=== PATIENT | female | born 1935 | race Caucasian/White ===

== ENCOUNTER 2022-01-26 12:57 | Outpatient (CLI) | payer OTHER, MEDICARE ==
[~2022-01-26 12:57] MED LIST: CARV3.1246 PO; DEXL60CA6 PO; DULO60CA65 PO; EZET10TA30 PO; FENOFIBRATE PO; GABA-331 PO; METF-380 PO; OXYSR10 PO; SPIR25TA PO
== END 2022-01-26 21:06 | disposition home or self-care (01) ==
LOC: SUS 12:57
PROVIDERS: ATTEND Specialist
DX: N90.89 Other specified noninflammatory disorders of vulva and perineum (principal); N32.89 Other specified disorders of bladder
CPT/HCPCS: 76856-TC

== ENCOUNTER 2022-02-13 22:11 | Inpatient (IN) | payer OTHER, MEDICARE ==
[~2022-02-13] VITALS: Ht 157.5 cm; Wt 98.1 kg
[2022-02-13 22:21] VITALS: BP_SYST 137
--- NOTE | 2022-02-13 22:25 | NUR ---
PATIENT PLACED IN BED 2. SATTING 91% ON RA. STATES FOR ONE HOUR, PATIENT HAS HAD CHEST PAIN THAT RADIATES DOWN LEFT ARM. PATIENT SOB WITH NO EXERTION. KIDNEY HISTORY.
--- NOTE | 2022-02-13 22:55 | NUR ---
MD at bedside with patient.
[2022-02-13] MEDS ORDERED: IPRATROPIUM/ALBUTEROL SULFATE 3 ML AMPUL.NEB (DUONEB) INH ONE (23:45)
--- NOTE | 2022-02-13 23:55 | NUR ---
RT AT BEDSIDE WITH PATIENT FOR BREATHING TX.
[2022-02-14 00:08] LABS: BASOPHILS # (AUTO) 0.1 K/uL (0.0-0.2); BASOPHILS % (AUTO) 0.9 % (0.0-2.0); EOSINOPHILS # (AUTO) 0.3 K/uL (0.0-0.4); EOSINOPHILS % (AUTO) 4.5 % (0.0-4.0); HEMATOCRIT 25.4 % (36-48); HEMOGLOBIN 8.3 g/dL (12.0-16.0); LYMPHOCYTES % (AUTO) 17.3 % (20.5-51.5); MEAN CORPUSCULAR HEMOGLOBIN 28 pg (27-31); MEAN CORPUSCULAR HGB CONC 33 % (32-36); MEAN CORPUSCULAR VOLUME 85 fL (79.0-98.0); MONOCYTES # (AUTO) 0.3 K/uL (0.0-1.0); MONOCYTES % (AUTO) 5.6 % (1.7-9.3); NEUTROPHILS # (AUTO) 4.2 K/uL (1.8-7.7); NEUTROPHILS % (AUTO) 71.7 % (40.0-70.0); PLATELET COUNT (AUTO) 169 K/uL (130-430); RED BLOOD CELL COUNT(AUTO) 2.98 MIL/uL (4.2-6.2); RED CELL DISTRIBUTION WIDTH 15.3 % (9.0-15.0); WHITE BLOOD COUNT (AUTO) 5.8 K/uL (4.8-10.8)
[2022-02-14 00:16] LABS: ANION GAP 7 (5-15); CALCIUM 8.3 mg/dL (8.4-11.0); CHLORIDE 103 mmol/L (98-107); CREATININE 3.46 mg/dL (0.55-1.30); GLUCOSE 135 mg/dL (70-99); POTASSIUM 4.5 mmol/L (3.5-5.1); SODIUM SERUM 137 mmol/L (136-145); UREA NITROGEN, BLOOD 48 mg/dL (8-21)
[2022-02-14 00:34] LABS: ALANINE AMINOTRANSFERASE 13 U/L (12-78); ALBUMIN 3.1 g/dL (3.4-4.8); ASPARTATE AMINOTRANSFERASE 12 U/L (10-37); TOTAL BILIRUBIN 0.4 mg/dL (0.0-1.0)
--- NOTE | 2022-02-14 00:53 | NUR ---
X-ray being done at bedside. Pt moved from wheelchair to bed with ease.
--- NOTE | 2022-02-14 01:25 | NUR ---
Pt sitting up in bed with eyes closed. VSS. Pt O2 sat at 95% on NC 3L. Safety precautions in place and pt connected to ekg monitor.
[2022-02-14] MEDS ORDERED: FUROSEMIDE 20 MG/2 ML VIAL IVP ONE ×2 (01:30→09:00)
--- NOTE | 2022-02-14 01:33 | NUR ---
Patient and unable to provide home medications.
--- NOTE | 2022-02-14 01:55 | NUR ---
COVID SWAB DONE AT BEDSIDE AND SENT TO LAB
--- NOTE | 2022-02-14 03:36 | NUR ---
Pt sitting in bed upright with eyes closed. VSS. O2 at 96% on NC 3L. Safety precautions in place and connected to monitor.
--- NOTE | 2022-02-14 04:03 | NUR ---
Admit bed requested Patient will be admitted to care of Dr. Vargas. Admitted to TELE unit. Diagnosis CHF EXACERBATION Inpatient (Yes or No) YES Observation (Yes or No) YES Orientation concerns or request close to nursing station (Yes or No) NO Covid Status PENDING On vent or bipap NO Isolation requirements NO Needs a sitter NO From Home (Yes or if No enter name of facility) YES Requires Dialysis (Yes or No) NO Med Rec Completed (Yes of No) UNABLE TO OBTAIN
[2022-02-14 05:30] VITALS: BP_SYST 138
--- NOTE | 2022-02-14 05:30 | NUR ---
Patient will be admitted to care of Dr. Vargas. Admitted to telemetry unit. Will go to room 103B. Belongings list completed. Complete and up to date summary report printed. SBAR report given to Alta RN at bedside with opportunity for questions.
--- NOTE | 2022-02-14 05:30 | NUR ---
ADMISSION: The patient, SILVER BE, 86 y/o, F admitted by JOEY ANDREWS MD, was given written information regarding hospital policies, unit procedures and contact persons. Valuables were checked and DOCUMENTED.
--- NOTE | 2022-02-14 05:35 | NUR ---
INITIAL NOTE AT INITIAL ASSESSMENT, PATIENT IS RESTING IN BED, STABLE, NO SIGNS OF RESPIRATORY DISTRESS. IS IS WEAK AND LETHARGIC. PATIENT VERBALIZES NO PAIN. PLAN OF CARE FOR THE EVENING IS COMMUNICATED WITH THE PATIENT. BED IS LOCKED, ALARMED, AND AT THE LOWEST LEVEL. FALL, SAFETY, AND RESPIRATORY PRECAUTIONS WILL BE IN PLACE THROUGHOUT THE SHIFT.
--- NOTE | 2022-02-14 05:45 | NUR ---
HYGIENE CARE PATIENT CHANGED INTO HOSPITAL GOWN. HYGIENE CARE PROVIDED. PATIENT REPOSITIONED FOR COMFORT. CALL LIGHT PLACED WITHIN REACH. BED IS LOCKED, ALARMED, AND AT THE LOWEST LEVEL.
--- NOTE | 2022-02-14 05:51 | NUR ---
CONSULTATION CALLED FOR DR. AQUINO FOR CONSULT OF CHF EXACERBATION ORDER BY DR. SÁNCHEZIUM SPOKE WITH SINA
--- NOTE | 2022-02-14 06:56 | NUR ---
CLOSING NOTE PATIENT REMAINED LETHARGIC BUT AROUSABLE THROUGHOUT THE SHIFT. SHE VERBALIZES NO MORE CHEST PAIN OR DISCOMFORT. AT THIS TIME, PATIENT IS SLEEPING, STABLE, NO SIGNS OF RESPIRATORY DISTRESS. BED IS LOCKED, ALARMED, AND AT THE LOWEST LEVEL. FALL, SAFETY, AND RESPIRATORY PRECAUTIONS HAVE BEEN TAKEN THROUGHOUT THE SHIFT. WILL CONTINUE TO MONITOR UNTIL SHIFT REPORT IS GIVEN AT BEDSIDE TO AM NURSE.
[2022-02-14 08:15] VITALS: BP_SYST 143; BP_SYST 150
[2022-02-14] MEDS ORDERED: GABAPENTIN 300 MG CAPSULE PO ONE (10:45)
[2022-02-14] MEDS ORDERED: BUDESONIDE 0.5 MG/2 ML AMPUL.NEB INH ONE (10:45)
[2022-02-14] MEDS ORDERED: CARVEDILOL 3.125 MG TABLET (COREG) PO ONE (10:45)
[2022-02-14] MEDS ORDERED: PANTOPRAZOLE SODIUM 40 MG TAB PO ONE (10:45)
[2022-02-14] MEDS ORDERED: DULoxetine HCL 30 MG CAPSULE.DR (CYMBALTA) PO ONE (10:45)
[2022-02-14] MEDS ORDERED: TAMSULOSIN HCL 0.4 MG CAP PO ONE (10:45)
[2022-02-14 10:50] LABS: ANION GAP 10 (5-15); CALCIUM 8.6 mg/dL (8.4-11.0); CHLORIDE 104 mmol/L (98-107); CREATININE 3.55 mg/dL (0.55-1.30); GLUCOSE 143 mg/dL (70-99); POTASSIUM 4.7 mmol/L (3.5-5.1); SODIUM SERUM 139 mmol/L (136-145); UREA NITROGEN, BLOOD 50 mg/dL (8-21)
[2022-02-14] MEDS ORDERED: ASPIRIN 81 MG TAB.CHEW PO ONE (11:00)
[2022-02-14] MEDS ORDERED: ENOXAPARIN SODIUM 30 MG/0.3 ML SYRINGE SUBCUT ONE (11:00)
[2022-02-14 11:04] LABS: ALANINE AMINOTRANSFERASE 18 U/L (12-78); ALBUMIN 3.3 g/dL (3.4-4.8); ASPARTATE AMINOTRANSFERASE 17 U/L (10-37); THYROID STIMULATING HORMONE 4.25 uIu/mL (0.36-3.74); TOTAL BILIRUBIN 0.5 mg/dL (0.0-1.0)
[2022-02-14 11:12] LABS: BASOPHILS % (AUTO) 0.5 % (0.0-2.0); EOSINOPHILS # (AUTO) 0.3 K/uL (0.0-0.4); EOSINOPHILS % (AUTO) 3.7 % (0.0-4.0); HEMATOCRIT 29.6 % (36-48); HEMOGLOBIN 9.6 g/dL (12.0-16.0); LYMPHOCYTES # (AUTO) 1.3 K/uL (1.0-5.5); LYMPHOCYTES % (AUTO) 16.9 % (20.5-51.5); MEAN CORPUSCULAR HEMOGLOBIN 28 pg (27-31); MEAN CORPUSCULAR HGB CONC 32 % (32-36); MEAN CORPUSCULAR VOLUME 86 fL (79.0-98.0); MONOCYTES # (AUTO) 0.5 K/uL (0.0-1.0); MONOCYTES % (AUTO) 6.7 % (1.7-9.3); NEUTROPHILS # (AUTO) 5.6 K/uL (1.8-7.7); NEUTROPHILS % (AUTO) 72.2 % (40.0-70.0); RED BLOOD CELL COUNT(AUTO) 3.43 MIL/uL (4.2-6.2); RED CELL DISTRIBUTION WIDTH 15.6 % (9.0-15.0)
[2022-02-14 11:14] LABS: WHITE BLOOD COUNT (AUTO) 7.7 K/uL (4.8-10.8)
[2022-02-14 12:15] VITALS: BP_SYST 126
[2022-02-14] MEDS: ALBUTEROL SULFATE 0.083% 2.5 MG/3 ML VIAL.NEB INH SCH ×2 (13:00→19:00)
[2022-02-14 13:03] LABS: PLATELET COUNT (AUTO) 152 K/uL (130-430)
[2022-02-14 16:15] VITALS: BP_SYST 121
--- NOTE | 2022-02-14 16:33 | NUR ---
CONSULTATION: REASON FOR CONSULT: RENAL FAILURE CONSULTING PHYSICIAN: JULIA ORDERED BY: DARRYL SPOKE WITH RIK FROM [employer] AND DR CHANDLER IS COVERING [phone]
[2022-02-14] MEDS: BUDESONIDE 0.5 MG/2 ML AMPUL.NEB INH SCH (19:00)
[2022-02-14 20:00] VITALS: BP_SYST 136
--- NOTE | 2022-02-14 20:00 | NUR ---
RECEIVED PT FROM DAY SHIFT, PT AOX1-2,NO ACUTE DISTRESS OR DISCOMFORT NOTED, BREATHING EVEN AND UNLABORED, IV SITE IS INTACT AND PATENT SALINE LOCK, BIPAP RR 10, 10/5, 30%, FALL AND SAFETY PRECAUTIONS IN PLACE WITH BED IN LOWEST POSITION, BED ALARM ON, AND CALL LIGHT WITHIN REACH, WILL CONTINUE TO MONITOR.
[2022-02-14] MEDS ORDERED: BUDESONIDE/FORMOTEROL 160-4.5 mCg, 6 GM INHALER INH SCH (21:00)
[2022-02-14] MEDS: FUROSEMIDE 20 MG/2 ML VIAL IVP SCH (21:14)
[2022-02-14] MEDS: GABAPENTIN 300 MG CAPSULE PO SCH (21:16)
[2022-02-14] MEDS: CARVEDILOL 3.125 MG TABLET (COREG) PO SCH (21:16)
[2022-02-15] VITALS: BP_SYST 127
--- NOTE | 2022-02-15 | NUR ---
N O CHANGES NOTED FROM PREVIOUS ASSESSMENT, WILL CONTINUE TO MONITOR.
[2022-02-15] MEDS: ALBUTEROL SULFATE 0.083% 2.5 MG/3 ML VIAL.NEB INH SCH ×3 (03:55→13:47)
--- NOTE | 2022-02-15 06:12 | NUR ---
PT RESTING COMFORTABLY IN BED, NO S/S OF DISTRESS OR DISCOMFORT NOTED, BREATHING EVEN AND UNLABORED, ALL FALL PROTOCOLS IN PLACE, WILL CONTINUE TO MONITOR AND ENDORSED TO INCOMING AM NURSE.
--- NOTE | 2022-02-15 07:17 | NUR ---
REPORT GIVEN TO VINAYAK JOSE FOR CONTINUITY OF CARE ALL QUESTIONS WERE ANSWERED AND RN VERBALIZED UNDERSTANDING.
[2022-02-15 07:26] LABS: ALANINE AMINOTRANSFERASE 13 U/L (12-78); ALBUMIN 2.9 g/dL (3.4-4.8); ANION GAP 9 (5-15); ASPARTATE AMINOTRANSFERASE 10 U/L (10-37); CALCIUM 8.7 mg/dL (8.4-11.0); CHLORIDE 104 mmol/L (98-107); CREATININE 3.72 mg/dL (0.55-1.30); GLUCOSE 89 mg/dL (70-99); POTASSIUM 4.1 mmol/L (3.5-5.1); SODIUM SERUM 140 mmol/L (136-145); TOTAL BILIRUBIN 0.4 mg/dL (0.0-1.0); UREA NITROGEN, BLOOD 48 mg/dL (8-21)
[2022-02-15 07:32] LABS: BASOPHILS % (AUTO) 0.7 % (0.0-2.0); EOSINOPHILS # (AUTO) 0.2 K/uL (0.0-0.4); EOSINOPHILS % (AUTO) 4.8 % (0.0-4.0); HEMOGLOBIN 7.8 g/dL (12.0-16.0); LYMPHOCYTES # (AUTO) 1.4 K/uL (1.0-5.5); LYMPHOCYTES % (AUTO) 27.6 % (20.5-51.5); MEAN CORPUSCULAR HEMOGLOBIN 28 pg (27-31); MEAN CORPUSCULAR HGB CONC 32 % (32-36); MEAN CORPUSCULAR VOLUME 86 fL (79.0-98.0); MONOCYTES # (AUTO) 0.5 K/uL (0.0-1.0); MONOCYTES % (AUTO) 9.7 % (1.7-9.3); NEUTROPHILS # (AUTO) 2.8 K/uL (1.8-7.7); NEUTROPHILS % (AUTO) 57.2 % (40.0-70.0); PLATELET COUNT (AUTO) 142 K/uL (130-430); RED BLOOD CELL COUNT(AUTO) 2.79 MIL/uL (4.2-6.2); RED CELL DISTRIBUTION WIDTH 15.6 % (9.0-15.0); WHITE BLOOD COUNT (AUTO) 4.9 K/uL (4.8-10.8)
[2022-02-15] MEDS: BUDESONIDE 0.5 MG/2 ML AMPUL.NEB INH SCH (07:32)
[2022-02-15 08:00] VITALS: BP_SYST 130
[2022-02-15 09:12] LABS: TOTAL IRON BIND. CAPACITY 357 ug/dL (250-450)
--- NOTE | 2022-02-15 10:00 | NUR ---
SCHEDULED MEDS GIVEN AND TOLERATED WELL. PT SITTING UP SPEAKING WITH FAMILY. DENIES PAIN. NO S/S OF RESP DISTRESS NOTED. CALL LIGHT WITHIN REACH.
[2022-02-15] MEDS: TAMSULOSIN HCL 0.4 MG CAP PO SCH (10:25)
[2022-02-15] MEDS: GABAPENTIN 300 MG CAPSULE PO SCH ×2 (10:26→21:28)
[2022-02-15] MEDS: ASPIRIN 81 MG TAB.CHEW PO SCH (10:26)
[2022-02-15] MEDS: PANTOPRAZOLE SODIUM 40 MG TAB PO SCH (10:26)
[2022-02-15] MEDS: FUROSEMIDE 20 MG/2 ML VIAL IVP SCH ×2 (10:27→21:31)
[2022-02-15] MEDS: CARVEDILOL 3.125 MG TABLET (COREG) PO SCH ×2 (10:27→21:31)
[2022-02-15] MEDS: DULoxetine HCL 30 MG CAPSULE.DR (CYMBALTA) PO SCH (10:27)
[2022-02-15] MEDS: ENOXAPARIN SODIUM 30 MG/0.3 ML SYRINGE SUBCUT SCH (10:28)
[2022-02-15 11:23] VITALS: BP_SYST 130
[2022-02-15 16:52] VITALS: BP_SYST 126
--- NOTE | 2022-02-15 16:56 | NUR ---
PT RESTING COMFORTABLY IN BED. RESP E/U. NO S/S OF DISTRESS NOTED. CALL LIGHT WITHIN REACH .
--- NOTE | 2022-02-15 16:56 | NUR ---
RECEIVED PT FROM DAMON CHAN. ASSUMED CARE.
[2022-02-15] MEDS: EPOETIN ALFA 10,000 UNITS/ML VIAL SUBCUT SCH (18:03)
--- NOTE | 2022-02-15 18:04 | NUR ---
RETACRIT SQ GIVEN TO [facility]. SITE WNL. PT WET URINE,GOWN AND LINEN CHANGED.
--- NOTE | 2022-02-15 19:27 | NUR ---
ENDORSED PT TO DAMON CHAN. ALL QUESTIONS AND CONCERNS ADDRESSED.
[2022-02-15 20:00] VITALS: BP_SYST 141
[2022-02-16] VITALS: BP_SYST 109
--- NOTE | 2022-02-16 | NUR ---
NO CHANGES NOTED FROM PREVIOUS ASSESSMENT, WILL CONTINUE TO MONITOR.
[2022-02-16] MEDS: BUDESONIDE 0.5 MG/2 ML AMPUL.NEB INH SCH ×3 (00:44→23:57)
[2022-02-16] MEDS: ALBUTEROL SULFATE 0.083% 2.5 MG/3 ML VIAL.NEB INH SCH ×4 (00:44→23:57)
--- NOTE | 2022-02-16 07:33 | NUR ---
REPORT GIVEN TO CLAUDIA JOSE FOR CONTINUITY OF CARE ALL QUESTIONS WERE ANSWERED AND RN VERBALIZED UNDERSTANDING.
[2022-02-16 08:05] VITALS: BP_SYST 113
--- NOTE | 2022-02-16 08:05 | NUR ---
INITIAL ROUNDS Received pt AAOx3, no s/s resp distress, no c/o pain or discomfort. Plan of care for the day reviewed with pt-pt verbalized her understanding. Pt voided, cleaned up and fresh chux placed. Pain management, disease process, skin and safety discussed-teach back done. Side rails up x3, bed alarm on for safety. Call light within reach.
[2022-02-16] MEDS: GABAPENTIN 300 MG CAPSULE PO SCH ×2 (09:47→21:06)
[2022-02-16] MEDS: ASPIRIN 81 MG TAB.CHEW PO SCH (09:52)
[2022-02-16] MEDS: DULoxetine HCL 30 MG CAPSULE.DR (CYMBALTA) PO SCH (09:52)
[2022-02-16] MEDS: PANTOPRAZOLE SODIUM 40 MG TAB PO SCH (09:52)
[2022-02-16] MEDS: TAMSULOSIN HCL 0.4 MG CAP PO SCH (09:53)
[2022-02-16] MEDS: CARVEDILOL 3.125 MG TABLET (COREG) PO SCH ×2 (09:53→21:06)
[2022-02-16] MEDS: ENOXAPARIN SODIUM 30 MG/0.3 ML SYRINGE SUBCUT SCH (09:54)
[2022-02-16] MEDS: FUROSEMIDE 20 MG/2 ML VIAL IVP SCH ×2 (09:54→21:06)
--- NOTE | 2022-02-16 16:31 | NUR ---
Dietitian Recommendations * Renal, Cardiac diet LP, RD Please refer to Nutrition Assessment for details. Addendum: 02/16/22 at [address] Amended: Links added.
--- NOTE | 2022-02-16 19:25 | NUR ---
CLOSING NOTE Pt resting quietly in bed with no s/s resp distress, no c/o pain or discomfort. RT placed pt on a humidifier due to dry nose. All precautions remain in place. Call light within reach.
[2022-02-16 20:00] VITALS: BP_SYST 118
--- NOTE | 2022-02-16 20:00 | NUR ---
RECEIVED PT FROM DAY SHIFT, PT AOX1-2,NO ACUTE DISTRESS OR DISCOMFORT NOTED, BREATHING EVEN AND UNLABORED, IV SITE IS INTACT AND PATENT SALINE LOCK, 2L NC SATURATING WELL, FALL AND SAFETY PRECAUTIONS IN PLACE WITH BED IN LOWEST POSITION, BED ALARM ON, AND CALL LIGHT WITHIN REACH, WILL CONTINUE TO MONITOR.
[2022-02-17] VITALS: BP_SYST 125
--- NOTE | 2022-02-17 | NUR ---
NO CHANGES NOTED FROM PREVIOUS ASSESSMENT, WILL CONTINUE TO MONITOR.
[2022-02-17] MEDS: ALBUTEROL SULFATE 0.083% 2.5 MG/3 ML VIAL.NEB INH SCH ×3 (01:00→15:27)
--- NOTE | 2022-02-17 07:15 | NUR ---
REPORT GIVEN TO BRONWYN RN FOR CONTINUITY OF CARE ALL QUESTIONS WERE ANSWERED AND RN VERBALIZED UNDERSTANDING.
[2022-02-17 07:20] VITALS: BP_SYST 145
--- NOTE | 2022-02-17 07:20 | NUR ---
Opening Notes Received report from night worker RN. Patient is laying in bed with eyes closed. A/O x1. Re-oriented patient to place, time and situation. No apparent distress noted. Call light within reach. Safety and fall precautions in place. All needs met.
[2022-02-17 08:40] LABS: BASOPHILS % (AUTO) 0.8 % (0.0-2.0); EOSINOPHILS # (AUTO) 0.2 K/uL (0.0-0.4); EOSINOPHILS % (AUTO) 3.8 % (0.0-4.0); HEMOGLOBIN 8.1 g/dL (12.0-16.0); LYMPHOCYTES # (AUTO) 0.9 K/uL (1.0-5.5); LYMPHOCYTES % (AUTO) 19.2 % (20.5-51.5); MEAN CORPUSCULAR HEMOGLOBIN 28 pg (27-31); MEAN CORPUSCULAR HGB CONC 33 % (32-36); MEAN CORPUSCULAR VOLUME 86 fL (79.0-98.0); MONOCYTES # (AUTO) 0.3 K/uL (0.0-1.0); NEUTROPHILS # (AUTO) 3.2 K/uL (1.8-7.7); NEUTROPHILS % (AUTO) 69.2 % (40.0-70.0); PLATELET COUNT (AUTO) 137 K/uL (130-430); RED BLOOD CELL COUNT(AUTO) 2.91 MIL/uL (4.2-6.2); RED CELL DISTRIBUTION WIDTH 15.2 % (9.0-15.0); WHITE BLOOD COUNT (AUTO) 4.6 K/uL (4.8-10.8)
[2022-02-17] MEDS: BUDESONIDE 0.5 MG/2 ML AMPUL.NEB INH SCH (08:42)
[2022-02-17 08:51] LABS: ANION GAP 5 (5-15); CALCIUM 8.8 mg/dL (8.4-11.0); CHLORIDE 100 mmol/L (98-107); CREATININE 3.72 mg/dL (0.55-1.30); GLUCOSE 141 mg/dL (70-99); POTASSIUM 4.1 mmol/L (3.5-5.1); SODIUM SERUM 138 mmol/L (136-145); UREA NITROGEN, BLOOD 48 mg/dL (8-21)
[2022-02-17 08:57] LABS: ALANINE AMINOTRANSFERASE 7 U/L (12-78); ALBUMIN 2.9 g/dL (3.4-4.8); ASPARTATE AMINOTRANSFERASE 13 U/L (10-37); TOTAL BILIRUBIN 0.5 mg/dL (0.0-1.0)
[2022-02-17] MEDS: TAMSULOSIN HCL 0.4 MG CAP PO SCH (09:00)
[2022-02-17] MEDS: CARVEDILOL 3.125 MG TABLET (COREG) PO SCH ×2 (09:00→21:05)
[2022-02-17] MEDS: GABAPENTIN 300 MG CAPSULE PO SCH ×2 (09:00→21:05)
[2022-02-17] MEDS: ASPIRIN 81 MG TAB.CHEW PO SCH (09:00)
[2022-02-17] MEDS: PANTOPRAZOLE SODIUM 40 MG TAB PO SCH (09:00)
[2022-02-17] MEDS: DULoxetine HCL 30 MG CAPSULE.DR (CYMBALTA) PO SCH (09:01)
[2022-02-17] MEDS: FUROSEMIDE 20 MG/2 ML VIAL IVP SCH ×2 (09:01→21:06)
[2022-02-17] MEDS: ENOXAPARIN SODIUM 30 MG/0.3 ML SYRINGE SUBCUT SCH (09:02)
--- NOTE | 2022-02-17 09:30 | NUR ---
Note Inserted arteaga catheter 16F. Tube secured on left thigh. Sterile technique used for insertion. No adverse effects noted. Patient does not complain of any pain. Tolerated arteaga insertion well. Call light within reach. Safety and fall precautions in place. All needs met.
--- NOTE | 2022-02-17 14:00 | NUR ---
Note Patient did not like her lunch, offered turkey sandwich patient agreed and additionally requested pudding. Provided patient with turkey sandwich, pudding and ice water.
[2022-02-17 14:03] VITALS: BP_SYST 122
--- NOTE | 2022-02-17 14:13 | NUR ---
Attempted PT visit, pt refused and states she feels to weak for PT today. RN made aware.
[2022-02-17 16:09] VITALS: BP_SYST 125
--- NOTE | 2022-02-17 16:31 | NUR ---
Discharge Planning: DCP faxed pt referral to [facility] [phone] for Bipap and [facility] [phone] for safety eval. DCP to follow up
[2022-02-17] MEDS: EPOETIN ALFA 10,000 UNITS/ML VIAL SUBCUT SCH (16:51)
--- NOTE | 2022-02-17 18:59 | NUR ---
Closing Note Patient is sitting up in bed awake, eating dinner. No apparent distress noted. Call light within reach. Safety and fall precautions in place. All needs met. Will endorse care to assistant shift supervisor RN.
[2022-02-17 20:00] VITALS: BP_SYST 132
--- NOTE | 2022-02-17 20:00 | NUR ---
RECEIVED PT FROM DAY SHIFT, PT AOX2-3,NO ACUTE DISTRESS OR DISCOMFORT NOTED, BREATHING EVEN AND UNLABORED, IV SITE IS INTACT AND PATENT SALINE LOCK, 2L NC SATURATING WELL, FALL AND SAFETY PRECAUTIONS IN PLACE WITH BED IN LOWEST POSITION, BED ALARM ON, AND CALL LIGHT WITHIN REACH, WILL CONTINUE TO MONITOR.
--- NOTE | 2022-02-17 22:17 | NUR ---
Paged , Alicia patient complaining of headache
[2022-02-17] MEDS ORDERED: ACETAMINOPHEN 325 MG TABLET PO PRN (22:30)
[2022-02-18] VITALS: BP_SYST 158
--- NOTE | 2022-02-18 | NUR ---
NO CHANGES NOTED FROM PREVIOUS ASSESSMENT, WILL CONTINUE TO MONITOR.
[2022-02-18 06:24] LABS: BASOPHILS % (AUTO) 0.8 % (0.0-2.0); EOSINOPHILS # (AUTO) 0.3 K/uL (0.0-0.4); EOSINOPHILS % (AUTO) 5.7 % (0.0-4.0); HEMATOCRIT 23.4 % (36-48); HEMOGLOBIN 7.7 g/dL (12.0-16.0); MEAN CORPUSCULAR HEMOGLOBIN 28 pg (27-31); MEAN CORPUSCULAR HGB CONC 33 % (32-36); MEAN CORPUSCULAR VOLUME 85 fL (79.0-98.0); MONOCYTES # (AUTO) 0.4 K/uL (0.0-1.0); MONOCYTES % (AUTO) 8.6 % (1.7-9.3); NEUTROPHILS # (AUTO) 3.2 K/uL (1.8-7.7); NEUTROPHILS % (AUTO) 63.9 % (40.0-70.0); PLATELET COUNT (AUTO) 140 K/uL (130-430); RED BLOOD CELL COUNT(AUTO) 2.75 MIL/uL (4.2-6.2); RED CELL DISTRIBUTION WIDTH 15.1 % (9.0-15.0)
[2022-02-18 06:42] LABS: ALANINE AMINOTRANSFERASE 13 U/L (12-78); ALBUMIN 2.8 g/dL (3.4-4.8); ANION GAP 5 (5-15); ASPARTATE AMINOTRANSFERASE 15 U/L (10-37); CALCIUM 8.6 mg/dL (8.4-11.0); CHLORIDE 99 mmol/L (98-107); CREATININE 3.67 mg/dL (0.55-1.30); GLUCOSE 122 mg/dL (70-99); SODIUM SERUM 139 mmol/L (136-145); TOTAL BILIRUBIN 0.4 mg/dL (0.0-1.0); UREA NITROGEN, BLOOD 49 mg/dL (8-21)
[2022-02-18] MEDS: ALBUTEROL SULFATE 0.083% 2.5 MG/3 ML VIAL.NEB INH SCH (07:00)
[2022-02-18] MEDS: BUDESONIDE 0.5 MG/2 ML AMPUL.NEB INH SCH (07:00)
--- NOTE | 2022-02-18 07:23 | NUR ---
REPORT GIVEN TO AJAY TANK TRUCK LOADER FOR CONTINUITY OF CARE ALL QUESTIONS WERE ANSWERED AND TANK TRUCK LOADER VERBALIZED UNDERSTANDING.
[2022-02-18 08:00] VITALS: BP_SYST 136
[2022-02-18] MEDS: ASPIRIN 81 MG TAB.CHEW PO SCH (08:57)
[2022-02-18] MEDS: GABAPENTIN 300 MG CAPSULE PO SCH (08:57)
[2022-02-18] MEDS: DULoxetine HCL 30 MG CAPSULE.DR (CYMBALTA) PO SCH (08:57)
[2022-02-18] MEDS: TAMSULOSIN HCL 0.4 MG CAP PO SCH (08:57)
[2022-02-18] MEDS: PANTOPRAZOLE SODIUM 40 MG TAB PO SCH (08:58)
[2022-02-18] MEDS: ENOXAPARIN SODIUM 30 MG/0.3 ML SYRINGE SUBCUT SCH (08:58)
[2022-02-18] MEDS: CARVEDILOL 3.125 MG TABLET (COREG) PO SCH (08:59)
[2022-02-18] MEDS: FUROSEMIDE 20 MG/2 ML VIAL IVP SCH (10:41)
[2022-02-18 12:00] VITALS: BP_SYST 126
[2022-02-18 12:11] VITALS: BP_SYST 109
--- NOTE | 2022-02-18 12:18 | NUR ---
DISCHARGE PLANNING Order for home Health & BIPAP. Per dc meeting/event planner [employer] states does not qualify for BIPAP needs outpt sleep study. Called & spoke with , verified address correct on face sheet. Pt lives with in mobile home with short steps & ramp. Wants pt to discharge home, no snf. Pt has CPAP at home, no home O2. Informed that will need outpt sleep study for BIPAP. States ok to bring pt home with no BIPAP if Dr Vargas says ok & he will f/u with Dr Vargas. States that has been with [employer] & that is the company wants to use. Called & spoke with Dr Vargas & updated per [employer] company needs outpt sleep study for BIPAP. Per Dr Vargas ok for pt to dc home with no BIPAP, pt with CPAP at home, will discuss with & arrange oupt sleep study. Plan for dc home today with home health, will be in later to see pt & place order if stable. Updated dc meeting/event planner.
[2022-02-18 15:10] VITALS: BP_SYST 112
[2022-02-18 16:11] VITALS: BP_SYST 115
--- NOTE | 2022-02-19 07:23 | NUR ---
PHYSICAL THERAPY CO-SIGN The Physical Therapy Progress Notes documented by Training And Documentation Specialist have been reviewed. Reviewed/Co-Signed by: Juan Butler Documentation Done by: FERNANDO HERNANDEZ PTA Addendum: 02/19/22 at 5123 by Juan Butler PT Amended: Links added.
== END 2022-02-18 16:05 | disposition home health service (06) | DRG 291 ==
LOC: SED 22:11 → STU 02-14 03:57
PROVIDERS: ADMIT Family Medicine; ATTEND Family Medicine
PROC: 5A09357 Assistance with Respiratory Ventilation, Less than 24 Consecutive Hours, Continuous Positive Airway Pressure (ICD-10-PCS; 2022-02-14)
PROC: 5A09357 Assistance with Respiratory Ventilation, Less than 24 Consecutive Hours, Continuous Positive Airway Pressure (ICD-10-PCS; principal; 2022-02-16)
DX: I13.2 Hypertensive heart and chronic kidney disease with heart failure and with stage 5 chronic kidney disease, or end stage renal disease (principal); I50.43 Acute on chronic combined systolic (congestive) and diastolic (congestive) heart failure; J96.21 Acute and chronic respiratory failure with hypoxia; N17.9 Acute kidney failure, unspecified; N18.5 Chronic kidney disease, stage 5; E87.4 Mixed disorder of acid-base balance; D64.9 Anemia, unspecified; E11.22 Type 2 diabetes mellitus with diabetic chronic kidney disease; E66.9 Obesity, unspecified; F03.90 Unspecified dementia, unspecified severity, without behavioral disturbance, psychotic disturbance, mood disturbance, and anxiety; G47.33 Obstructive sleep apnea (adult) (pediatric); Z20.822 Contact with and (suspected) exposure to COVID-19; J44.9 Chronic obstructive pulmonary disease, unspecified; Z90.710 Acquired absence of both cervix and uterus; Z79.899 Other long term (current) drug therapy; Z68.39 Body mass index [BMI] 39.0-39.9, adult; Z91.012 Allergy to eggs; Z95.0 Presence of cardiac pacemaker
CPT/HCPCS: 36415; 36600; 71045; 71250-TC; 76376; 76770; 80053; 82803-TC; 83540; 83550; 83880; 84443; 84484; 85025; 93005; 93306; 94640; 94660; 94760; 96374; 97110-GP; 97116-GP; 99285; G0378; J0885; J1650; J1940; J7613; J7626

== ENCOUNTER 2022-03-09 13:50 | Emergency (ER) | payer OTHER, MEDICARE ==
[~2022-03-09] VITALS: Ht 154.9 cm; Wt 104.3 kg
[2022-03-09 14:28] VITALS: BP_SYST 138
[2022-03-09] MEDS ORDERED: MORPHINE 4 MG INJ. 4 MG/ML VIAL IM ONE (14:45)
[2022-03-09 15:28] LABS: HEMOGLOBIN 7.4 g/dL (12.0-16.0); WHITE BLOOD COUNT (AUTO) 3.8 K/uL (4.8-10.8)
[2022-03-09 15:33] LABS: ANION GAP 9 (5-15); CALCIUM 8.6 mg/dL (8.4-11.0); CHLORIDE 100 mmol/L (98-107); GLUCOSE 115 mg/dL (70-99); POTASSIUM 3.7 mmol/L (3.5-5.1); SODIUM SERUM 137 mmol/L (136-145); UREA NITROGEN, BLOOD 42 mg/dL (8-21)
[2022-03-09 15:38] LABS: HEMATOCRIT 22.5 % (36-48); MEAN CORPUSCULAR HEMOGLOBIN 28 pg (27-31); MEAN CORPUSCULAR HGB CONC 33 % (32-36); MEAN CORPUSCULAR VOLUME 84 fL (79.0-98.0); PLATELET COUNT (AUTO) 219 K/uL (130-430); PROTHROMBIN TIME 10.8 SECS (9.5-12.5); RED BLOOD CELL COUNT(AUTO) 2.69 MIL/uL (4.2-6.2); RED CELL DISTRIBUTION WIDTH 15.4 % (9.0-15.0)
[2022-03-09 15:39] LABS: ALANINE AMINOTRANSFERASE 11 U/L (12-78); ALBUMIN 2.8 g/dL (3.4-4.8); AMYLASE 39 U/L (0-100); ASPARTATE AMINOTRANSFERASE 14 U/L (10-37); LIPASE 81 U/L (73-393); TOTAL BILIRUBIN 0.3 mg/dL (0.0-1.0)
[2022-03-09 16:23] LABS: LYMPHOCYTES % (MANUAL) 37 % (20-46); MONOCYTES % (MANUAL) 7 % (0-11)
[2022-03-09 16:29] LABS: EOSINOPHILS % (MANUAL) 0 % (0-7)
[2022-03-09 16:30] LABS: BASOPHILS % (MANUAL) 0 % (0-2)
[2022-03-09 17:02] VITALS: BP_SYST 167
== END 2022-03-09 17:02 | disposition home or self-care (01) ==
LOC: SED 13:50
DX: M54.50 Low back pain, unspecified (principal); D64.9 Anemia, unspecified; I10 Essential (primary) hypertension; Z91.012 Allergy to eggs; Z79.899 Other long term (current) drug therapy
CPT/HCPCS: 99285; 74176; 85027; 80053; 82150; 83690; 85007; 85610; 85730; 86886; 86900; 86901; 36415; 93005; 76376; 96372; 83605; J2270

== ENCOUNTER 2022-03-11 13:56 | Emergency (ER) | payer OTHER, MEDICARE ==
[~2022-03-11] VITALS: Ht 154.9 cm; Wt 95.3 kg
[2022-03-11 14:07] VITALS: BP_SYST 119
[2022-03-11 14:56] LABS: ANION GAP 7 (5-15); CALCIUM 8.3 mg/dL (8.4-11.0); CHLORIDE 103 mmol/L (98-107); CREATININE 2.76 mg/dL (0.55-1.30); GLUCOSE 113 mg/dL (70-99); POTASSIUM 3.9 mmol/L (3.5-5.1); SODIUM SERUM 140 mmol/L (136-145); UREA NITROGEN, BLOOD 41 mg/dL (8-21)
[2022-03-11 15:02] LABS: ALANINE AMINOTRANSFERASE 8 U/L (12-78); ALBUMIN 2.7 g/dL (3.4-4.8); ASPARTATE AMINOTRANSFERASE 13 U/L (10-37); TOTAL BILIRUBIN 0.3 mg/dL (0.0-1.0)
[2022-03-11 15:47] LABS: BASOPHILS % (AUTO) 0.7 % (0.0-2.0); EOSINOPHILS # (AUTO) 0.1 K/uL (0.0-0.4); EOSINOPHILS % (AUTO) 2.7 % (0.0-4.0); HEMATOCRIT 24.1 % (36-48); HEMOGLOBIN 7.9 g/dL (12.0-16.0); LYMPHOCYTES # (AUTO) 1.1 K/uL (1.0-5.5); LYMPHOCYTES % (AUTO) 21.3 % (20.5-51.5); MEAN CORPUSCULAR HEMOGLOBIN 28 pg (27-31); MEAN CORPUSCULAR HGB CONC 33 % (32-36); MEAN CORPUSCULAR VOLUME 83 fL (79.0-98.0); MONOCYTES # (AUTO) 0.3 K/uL (0.0-1.0); MONOCYTES % (AUTO) 6.4 % (1.7-9.3); NEUTROPHILS # (AUTO) 3.4 K/uL (1.8-7.7); NEUTROPHILS % (AUTO) 68.9 % (40.0-70.0); PLATELET COUNT (AUTO) 240 K/uL (130-430); RED BLOOD CELL COUNT(AUTO) 2.89 MIL/uL (4.2-6.2); RED CELL DISTRIBUTION WIDTH 15.6 % (9.0-15.0)
[2022-03-11 16:11] VITALS: BP_SYST 141
== END 2022-03-11 16:09 | disposition home or self-care (01) ==
LOC: SED 13:56
DX: D64.9 Anemia, unspecified (principal); I11.0 Hypertensive heart disease with heart failure; I50.9 Heart failure, unspecified; N19 Unspecified kidney failure; Z91.012 Allergy to eggs; Z79.899 Other long term (current) drug therapy
CPT/HCPCS: 36415; 80053; 85025; 99283